=== PATIENT | male | born 1995 | race Caucasian/White ===

== ENCOUNTER 2020-01-08 04:45 | Emergency (ER) | payer SELFPAY ==
[2020-01-08] VITALS (8 sets, daily range): BP systolic 135–184; BP diastolic 83–127; PULSE 82–113; RESP 13–22; TEMP 37.3; O2SAT 98–100
--- NOTE | ~2020-01-08 | XR_ITS ---
EXAMINATION: XR chest 2V DATE: 01/08/2020 05:01 INDICATION: Midline chest pain. TECHNIQUE: Frontal and lateral views of the chest were obtained. COMPARISON: None. FINDINGS: The chest demonstrates clear lungs without pneumonia, pleural effusion, or pneumothorax. Th e heart size is normal. IMPRESSION: 1. No acute cardiopulmonary disease. Reviewed, dictated and finalized at location A.
--- NOTE | 2020-01-08 04:52 | ECG_ITS ---
Measurements Intervals [place] Rate: 103 P: 46 [place]: 117 QRS: 40 QRSD: 89 T: -26 QT: 337 QTc: 443 Interpretive Statements SINUS TACHYCARDIA WITH SHORT CA INTERVAL BORDERLINE ST-T WAVE ABNORMALITY- DIFFUSE LEADS BASELINE ARTIFACT- I, II, III, AVR, AVL, AVF, V3 ABNORMAL ECG Electronically Signed On 01-08-2020 7:28:08 CDT by Heath Berg D.O.
--- NOTE | 2020-01-08 05:01 | ED.CHESTPAIN ---
HPI - Chest Pain General Chief Complaint: Chest Pain <Mehdi Mars MD - Last Filed: 01/09/20 04:27> Stated Complaint: chest pain <Mehdi Mars MD - Last Filed: 01/09/20 04:27> Time Seen by Provider: 01/08/20 04:52 <Mehdi Mars MD - Last Filed: 01/09/20 04:27> History of Present Illness HPI narrative: 24 yo previously healthy male presents c/o chest pain. He has had the pain continuously for the past 2 days. It is substernal without radiation. Associated with intermittent SOB. Pain is worse with activity. Additionally he has noted that his his pupils are dilated and he has been shaking. symptoms became worse last night after dinner. EMS reports that he told them that he had been hearing voices. He denies alcohol or drug use. <Mehdi Mars MD - Last Filed: 01/09/20 04:27> Related Data Allergies/Adverse Reactions: Allergies Allergy/AdvReac Type Severity Reaction Status Date / Time No Known Allergies Allergy Verified 01/08/20 05:02 <Mehdi Mars MD - Last Filed: 01/09/20 04:27> Review of Systems Review of Systems: All systems reviewed & are unremarkable except as noted in HPI and below <Mehdi Mars MD - Last Filed: 01/09/20 04:27> Constitutional: Constitutional: Denies fever(s) <Mehdi Mars MD - Last Filed: 01/09/20 04:27> ENT: Reports dizziness <Mehdi Mars MD - Last Filed: 01/09/20 04:27> Cardiovascular: Cardiovascular: Reports chest pain and Reports rapid heart rate <Mehdi Mars MD - Last Filed: 01/09/20 04:27> Respiratory: Respiratory: Reports dyspnea <Mehdi Mars MD - Last Filed: 01/09/20 04:27> Gastrointestinal: Gastrointestinal: Denies abdominal pain and Denies nausea <Mehdi Mars MD - Last Filed: 01/09/20 04:27> Neurologic: Reports numbness (hands) and Denies weakness <Mehdi Mars MD - Last Filed: 01/09/20 04:27> [facility] Social History Social History: Social History (Updated 01/08/20 @ 05:06 by Mehdi Mars MD) Smoking status: Current every day smoker Gender identity (if verbalized by the patient): Male <Mehdi Mars MD - Last Filed: 01/09/20 04:27> Exam Const: General: alert <Medhi Mars MD - Last Filed: 01/09/20 04:27> Nutritional Appearance: well nourished <Mehdi Mars MD - Last Filed: 01/09/20 04:27> Orientation/consciousness: patient oriented x3 <Mehdi Mars MD - Last Filed: 01/09/20 04:27> HENMT: Head: normal to inspection <Mehdi Mars MD - Last Filed: 01/09/20 04:27> Eyes: Pupils: Equal, round and reactive pupils present <Mehdi Mars MD - Last Filed: 01/09/20 04:27> EOM: EOMs intact bilaterally <Mehdi Mars MD - Last Filed: 01/09/20 04:27> Resp: Effort & Inspection: normal respiratory effort <Mehdi Mars MD - Last Filed: 01/09/20 04:27> Auscultation: clear to auscultation bilaterally <Mehdi Mars MD - Last Filed: 01/09/20 04:27> Cardio: Rate: tachycardic <Mehdi Mars MD - Last Filed: 01/09/20 04:27> Rhythm: regular rhythm <Mehdi Mars MD - Last Filed: 01/09/20 04:27> GI: Other: Soft, NT, ND <Mehdi Mars MD - Last Filed: 01/09/20 04:27> Skin: General skin exam: normal color <Mehdi Mars MD - Last Filed: 01/09/20 04:27> Other: Fine papular rash to bilateral ankles <Mehdi Mars MD - Last Filed: 01/09/20 04:27> Neuro: General: patient oriented x3, moves all extremities and CN's II-XI intact bilaterally <Mehdi Mars MD - Last Filed: 01/09/20 04:27> Speech: normal speech <Mehdi Mars MD - Last Filed: 01/09/20 04:27> Other: tremulous <Mehdi Mars MD - Last Filed: 01/09/20 04:27> Extrem: General: normal to inspection <Mehdi Mars MD - Last Filed: 01/09/20 04:27> Psych: Affect: Anxious affect present <Mehdi Mars MD - Last Filed: 01/09/20 04:27> Course Course Emergency Cours
[2020-01-08 05:02] LABS: Basophils Absolute Auto 0.1 K/mm3 (0.0-0.1); Basophils Percent Auto 0.7 % (0.2-1.2); Eosinophils Absolute Auto 0.2 K/mm3 (0-0.3); Eosinophils Percent Auto 2.4 % (0-4.4); Hematocrit 40.9 % (42.0-52.0); Hemoglobin 14.7 g/dL (14.0-18.0); Immature Granulocyte Absolute 0.03 K/mm3 (0.00-0.031); Immature Granulocyte Percent A 0.3 % (0-0.5); Lymphocytes Absolute Auto 2.87 K/mm3 (0.9-3.2); Lymphocytes Percent Auto 29.7 % (18.3-44.2); Mean Corpuscular HGB Conc 35.9 g/dl (32-36); Mean Corpuscular Hemoglobin 31.9 pg (26-34); Mean Corpuscular Volume 88.7 fl (80-100); Mean Platelet Volume 9.8 fl (7.4-10.4); Monocytes Absolute Auto 0.8 K/mm3 (0.1-0.6); Monocytes Percent Auto 8.3 % (2.6-8.5); Neutrophils Absolute Auto 5.7 K/mm3 (1.3-6.7); Neutrophils Percent Auto 58.6 % (45.5-73.1); Platelet Count Result 237 k/mm3 (150-375); Red Blood Count 4.61 M/mm3 (4.6-6.20); Red Cell Distribution Width 12.5 % (11.5-14.5); White Blood Count 9.7 K/mm3 (4.5-10.0)
[2020-01-08] MEDS: LORAZEPAM INJ 2 MG/ML VIAL 1 MG IV PUSH (05:13)
[2020-01-08] MEDS: SODIUM CHLORIDE 0.9% IV 1,000 ML 999 ML IV CONT (05:14)
[2020-01-08 05:15] LABS: Alanine Aminotransferase 69 U/L (4-50); Albumin Level 4.5 g/dL (3.5-5.1); Alkaline Phosphatase 67 U/L (38-126); Aspartate Amino Transferase 61 U/L (17-59); Bilirubin,Total 1.6 mg/dL (0.2-1.3); Blood Urea Nitrogen 14 mg/dL (9-20); Calcium 9.3 mg/dL (8.4-10.2); Carbon Dioxide 30 mmol/L (22-30); Chloride 96 mmol/L (98-107); Estimated CRCL calculation 130 ml/min; Estimated Glomerular Filt Rate > 60; Glucose 106 mg/dL (75-110); Potassium 3.1 mmol/L (3.4-5.0); Sodium 133 mmol/L (137-145)
[2020-01-08 05:25] LABS: D Dimer < 0.22 ug/mL (<0.48)
[2020-01-08 05:42] LABS: Add Urine Microscopic? YES; Amorphous Sediment Urine Few; Appearance Urine Clear (Clear); Bacteria Urine Trace /hpf; Bilirubin Urine Negative (Negative); Blood Urine Negative (Negative); Color Urine Yellow (Yellow); Glucose Urine UA Negative (Negative); Ketones Urine Negative (Negative); Leukocyte Esterase Ur Negative LEU/UL (Negative); Nitrate Urine Negative (Negative); Protein Urine 1+ mg/dL (Negative); RBC Urine 0-2 /hpf (0-2); Specific Grav Ur 1.015 (1.001-1.035); WBC Urine 0-3 /hpf
[2020-01-08 05:53] LABS: Amphetamine Screen Urine Negative (Negative); Barbiturate Screen Urine Negative (Negative); Benzodiazepines Screen Urine Negative (Negative); Cannabinoid Screen Urine Negative (Negative); Cocaine Screen Urine Negative (Negative); Methadone Screen Urine Negative (Negative); Opiate Screen Urine Negative (Negative); Phencyclidine Screen Urine Negative (Negative)
[2020-01-08] MEDS: POTASSIUM CHLORIDE 20 MEQ TABLET 40 MEQ PO (08:00)
[2020-01-08 08:15] LABS: Troponin I < 0.012 ng/mL (0.000-0.034)
== END 2020-01-08 08:25 | disposition home or self-care (01) ==
PROVIDERS: Emergency Medicine; Emergency Provider Emergency Medicine
DX: R07.89 Other chest pain (principal); F17.200 Nicotine dependence, unspecified, uncomplicated; R00.0 Tachycardia, unspecified; R94.31 Abnormal electrocardiogram [ECG] [EKG]
CPT/HCPCS: 36415; 71046; 80053; 80307; 81001; 84443; 84484; 85025; 85380; 93005; 96361; 96374; 99284; A9270; J2060; J7030

== ENCOUNTER 2020-01-09 13:28 | Emergency (ER) | payer SELFPAY ==
[2020-01-09] VITALS (16 sets, daily range): BP systolic 149–174; BP diastolic 85–126; PULSE 79–132; RESP 16–25; TEMP 37.7; O2SAT 98–100
--- NOTE | ~2020-01-09 | CT_ITS ---
EXAMINATION: CT brain wo con DATE: 01/09/2020 14:24 INDICATION: Altered mental status TECHNIQUE: Computed tomography (CT) of the head was performed without intravenous contrast. Sagittal and coronal reconstructions were performed. The mA was adjusted according to patient size. Iterative reconstruction technique was employed. The dose-length product was 605.33 mGy-cm. COMPARISON: None FINDINGS: No acute intracranial hemorrhage, acute infarction or abnormal extra axial fluid collection. Ventricl es are normal and symmetric. No mass/mass effect. The orbits, paranasal sinuses and mastoid air cells are normal. IMPRESSION: 1. Normal head CT. Reviewed, dictated and finalized at location A. IMPRESSION: 1. Normal head CT.
--- NOTE | 2020-01-09 13:35 | ECG_ITS ---
Measurements Intervals [place] Rate: 114 P: 64 [place]: 129 QRS: 57 QRSD: 88 T: -7 QT: 276 QTc: 382 Interpretive Statements SINUS TACHYCARDIA INCOMPLETE RIGHT BUNDLE BRANCH BLOCK NONSPECIFIC ST & T-WAVE ABNORMALITY- ANTEROLAT/INF LEADS ABNORMAL ECG Electronically Signed On 01-09-2020 14:05:46 CDT by Heath Berg D.O.
[2020-01-09 13:48] LABS: Basophils Absolute Auto 0.1 K/mm3 (0.0-0.1); Basophils Percent Auto 0.9 % (0.2-1.2); Eosinophils Absolute Auto 0.4 K/mm3 (0-0.3); Eosinophils Percent Auto 3.9 % (0-4.4); Hematocrit 38.9 % (42.0-52.0); Hemoglobin 13.9 g/dL (14.0-18.0); Immature Granulocyte Absolute 0.02 K/mm3 (0.00-0.031); Immature Granulocyte Percent A 0.2 % (0-0.5); Lymphocytes Absolute Auto 3.51 K/mm3 (0.9-3.2); Lymphocytes Percent Auto 32.9 % (18.3-44.2); Mean Corpuscular HGB Conc 35.7 g/dl (32-36); Mean Corpuscular Hemoglobin 32.6 pg (26-34); Mean Corpuscular Volume 91.1 fl (80-100); Mean Platelet Volume 10.3 fl (7.4-10.4); Monocytes Absolute Auto 1.1 K/mm3 (0.1-0.6); Monocytes Percent Auto 10.1 % (2.6-8.5); Neutrophils Absolute Auto 5.6 K/mm3 (1.3-6.7); Platelet Count Result 215 k/mm3 (150-375); Red Blood Count 4.27 M/mm3 (4.6-6.20); Red Cell Distribution Width 13.1 % (11.5-14.5); White Blood Count 10.7 K/mm3 (4.5-10.0)
[2020-01-09] MEDS: SODIUM CHLORIDE 0.9% IV 1,000 ML 999 ML IV CONT (13:51)
[2020-01-09] MEDS: LORAZEPAM INJ 2 MG/ML VIAL 1 MG IV PUSH (13:53)
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
[2020-01-09 14:00] LABS: Alanine Aminotransferase 49 U/L (4-50); Albumin Level 4.5 g/dL (3.5-5.1); Alkaline Phosphatase 54 U/L (38-126); Aspartate Amino Transferase 55 U/L (17-59); Bilirubin,Total 0.6 mg/dL (0.2-1.3); Blood Urea Nitrogen 6 mg/dL (9-20); Carbon Dioxide 23 mmol/L (22-30); Chloride 102 mmol/L (98-107); Estimated CRCL calculation 151 ml/min; Estimated Glomerular Filt Rate > 60; Ethanol < 10 mg/dL (<10); Glucose 112 mg/dL (75-110); Potassium 3.1 mmol/L (3.4-5.0); Sodium 137 mmol/L (137-145)
[2020-01-09] MEDS: POTASSIUM CHLORIDE 20 MEQ TABLET 40 MEQ PO (14:37)
[2020-01-09 15:06] LABS: Add Urine Microscopic? NO; Appearance Urine Clear (Clear); Bilirubin Urine Negative (Negative); Blood Urine Negative (Negative); Color Urine Straw (Yellow); Glucose Urine UA Negative (Negative); Ketones Urine Negative (Negative); Leukocyte Esterase Ur Negative LEU/UL (Negative); Mucus Urine Rare /lpf; Nitrate Urine Negative (Negative); Protein Urine Negative (Negative); Specific Grav Ur 1.008 (1.001-1.035); Squamous Epithelial Cell Urine Rare /hpf (Few); Urobilinogen Urine Negative mg/dL (<2.0); WBC Urine 0-3 /hpf
[2020-01-09 15:18] LABS: Amphetamine Screen Urine Negative (Negative); Barbiturate Screen Urine Negative (Negative); Benzodiazepines Screen Urine Negative (Negative); Cannabinoid Screen Urine Negative (Negative); Cocaine Screen Urine Negative (Negative); Methadone Screen Urine Negative (Negative); Opiate Screen Urine Negative (Negative); Phencyclidine Screen Urine Negative (Negative)
--- NOTE | 2020-01-09 15:33 | PC.NURSE ---
Note multiple times when checking on patient that he appears to be having a conversation with someone. Pt denies auditory or visual hallucinations. Denies suicidal or homicidal ideations. Dr. Toure made aware.
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
--- NOTE | 2020-01-09 16:30 | PC.NURSE ---
Pt again attempting to walk out again. Dr. Toure at bedside.
--- NOTE | 2020-01-09 16:35 | PC.NURSE ---
Dr. Toure speaking with patient's mother at [phone].
--- NOTE | 2020-01-09 16:37 | PC.NURSE ---
Pt again noted per sitter to be going through cabinets and drawers, pacing around the room. Explained to patient that will need to place him into ED Rm 15 if he is unable to control his behavior. Pt states no man, I'm not going in there . Sitter remains at bedside.
--- NOTE | 2020-01-09 16:43 | PC.NURSE ---
Behavioral health here to speak with patient.
--- NOTE | 2020-01-09 16:57 | PC.NURSE ---
Pt given green scrubs and security assisting with getting patient to ED RM 15.
--- NOTE | 2020-01-09 17:03 | PC.NURSE ---
Pt's belongings removed and secured in locked cabinet at nurses station.
--- NOTE | 2020-01-09 17:42 | PC.NURSE ---
Report to Ana María at [facility].
--- NOTE | 2020-01-09 17:49 | PC.NURSE ---
1730 RECEIVED CALL FROM BETSY @[facility],ASKED TO FAX FACE SHEET TO [facility]. SHE ALSO STATED SHE HAD SENT INFO TO MAKI GUNTER.
--- NOTE | 2020-01-09 17:52 | PC.NURSE ---
Report to Traci at [facility].
--- NOTE | 2020-01-09 18:08 | PC.NURSE ---
Pt's chart faxed to [facility] and [facility] for their review. Alem remains at bedside. Pt cooperative.
--- NOTE | 2020-01-09 19:19 | PC.NURSE ---
Report to DALE Whyte, to continue care.
--- NOTE | 2020-01-09 19:26 | PC.NURSE ---
Crisis intervention assessment and inpatient certificate refaxed to [place] per request of DALE Gotti.
[2020-01-09] MEDS: WATER, STERILE FOR INJECTION 10 ML VIAL XX (19:43)
[2020-01-09] MEDS: OLANZapine 10 MG INJ VIAL IM (19:43)
--- NOTE | 2020-01-09 19:43 | PC.NURSE ---
Patient noted to be screaming about killing people and making the hospital collapse killing everyone inside. ED lead instructor/flight attendant and physician aware of situation, medications ordered. Patient given medication, while being verbally abusive to staff. Reportedly calling this RN you fucking bitch, I'll show you. Patient on bed in room 15, security and sitter at bedside.
--- NOTE | 2020-01-09 22:12 | PC.NURSE ---
[facility] fax for Covid screening returned per request from Amanda.
--- NOTE | 2020-01-09 22:31 | PC.NURSE ---
2227- per Tete with Crisis- fax ED record to [facility]. Fax- [phone], [facility] number - [phone].
--- NOTE | 2020-01-09 22:38 | PC.NURSE ---
Patient's chart faxed to [facility] per request of Amanda.
--- NOTE | 2020-01-10 01:04 | PC.NURSE ---
Amanda duran [facility] called, Dr Ordonez accepts patient. States the unit will call when his bed is ready.
--- NOTE | 2020-01-10 01:33 | PC.NURSE ---
spoke w/ [facility]. informed them pt is accepted at [facility]
[2020-01-10 02:10] VITALS: BP 144/94; PULSE 60; RESP 15; TEMP 36.1; O2SAT 100
--- NOTE | 2020-01-10 02:18 | PC.NURSE ---
Called [facility] to transport to [facility]...ETA [id number]
== END 2020-01-10 04:17 ==
PROVIDERS: Emergency Medicine; Emergency Provider Emergency Medicine
DX: R45.6 Violent behavior (principal); F17.200 Nicotine dependence, unspecified, uncomplicated; R00.0 Tachycardia, unspecified; I45.10 Unspecified right bundle-branch block; R94.31 Abnormal electrocardiogram [ECG] [EKG]
CPT/HCPCS: 36415; 70450; 80053; 80307; 81003; 84443; 85025; 93005; 96361; 96372; 96374; 99285; A4565; A9270; J2060; J7030

== ENCOUNTER 2020-07-13 15:47 | Emergency (ER) | payer SELFPAY ==
[2020-07-13] VITALS (7 sets, daily range): BP systolic 138–182; BP diastolic 92–103; PULSE 75–103; RESP 8–18; TEMP 36.6; O2SAT 84–100
--- NOTE | ~2020-07-13 | XR_ITS ---
EXAMINATION: XR chest 2V DATE: 07/13/2020 17:17 INDICATION: Bilateral leg swelling. TECHNIQUE: Frontal and lateral views of the chest were obtained. COMPARISON: Chest 2 views 01/08/20 FINDINGS: The chest demonstrates clear lungs without pneumonia, pleural effusion, or pneumothorax. Th e heart size is normal. IMPRESSION: 1. No acute cardiopulmonary disease. Reviewed, dictated and finalized at location A. CH MARKETING ANALYST
--- NOTE | ~2020-07-13 | US_ITS ---
EXAMINATION: US venous doppler [facility] DATE: 07/13/2020 18:05 INDICATION: Lower limb edema. TECHNIQUE: Grayscale ultrasound images without and with compression and Doppler ultrasound images of the bilateral lower extremity veins were obtained. COMPARISON: None. FINDINGS: The visualized portions of right common femoral vein, profunda (deep) femoral vein, femoral vein, pop liteal vein, peroneal veins, posterior tibial veins, and greater saphenous vein outflow are patent. The visualized portions of left common femoral vein, profunda femoral vein, femoral vein, popliteal v ein, peroneal veins, posterior tibial veins, and greater saphenous vein outflow are patent. IMPRESSION: 1. No deep venous thrombosis. Reviewed, dictated and finalized at location A. AID
--- NOTE | ~2020-07-13 | XR_ITS ---
EXAMINATION: XR hand LT min 3V DATE: 07/13/2020 18:10 INDICATION: Left hand pain and swelling. Injury. TECHNIQUE: 3 views of left hand were obtained. COMPARISON: None. FINDINGS: There is a transverse fracture of diaphysis of fourth metacarpal. The distal fracture fragm ent demonstrates 22 degrees palmar angulation, one cortical width ulnar displacement, and 12 degrees radial angulation. Joint spaces are normal. IMPRESSION: 1. Transverse fracture of diaphysis of fourth metacarpal. Reviewed, dictated and finalized at location A. ASTRUCTURE DEVELOPER
[2020-07-13 16:09] LABS: Basophils Absolute Auto 0.1 K/mm3 (0.0-0.1); Basophils Percent Auto 1.1 % (0.2-1.2); Eosinophils Absolute Auto 0.6 K/mm3 (0-0.3); Eosinophils Percent Auto 7.8 % (0-4.4); Hematocrit 37.2 % (42.0-52.0); Hemoglobin 12.4 g/dL (14.0-18.0); Immature Granulocyte Absolute 0.01 K/mm3 (0.00-0.031); Immature Granulocyte Percent A 0.1 % (0-0.5); Lymphocytes Absolute Auto 1.76 K/mm3 (0.9-3.2); Lymphocytes Percent Auto 23.3 % (18.3-44.2); Mean Corpuscular HGB Conc 33.3 g/dl (32-36); Mean Corpuscular Volume 96.1 fl (80-100); Mean Platelet Volume 9.1 fl (7.4-10.4); Monocytes Percent Auto 12.7 % (2.6-8.5); Neutrophils Absolute Auto 4.1 K/mm3 (1.3-6.7); Platelet Count Result 295 k/mm3 (150-375); Red Blood Count 3.87 M/mm3 (4.6-6.20); Red Cell Distribution Width 14.1 % (11.5-14.5); White Blood Count 7.5 K/mm3 (4.5-10.0)
[2020-07-13 16:19] LABS: INR 0.9; Prothrombin Time 13.2 Seconds (11.1-14.7)
[2020-07-13 16:25] LABS: Alanine Aminotransferase 61 U/L (4-50); Albumin Level 3.8 g/dL (3.5-5.1); Alkaline Phosphatase 91 U/L (38-126); Anion Gap 6 mmol/L (8-16); Aspartate Amino Transferase 78 U/L (17-59); Bilirubin,Total 0.3 mg/dL (0.2-1.3); Blood Urea Nitrogen 4 mg/dL (9-20); Calcium 9.2 mg/dL (8.4-10.2); Carbon Dioxide 33 mmol/L (22-30); Chloride 99 mmol/L (98-107); Estimated CRCL calculation 150 ml/min; Estimated Glomerular Filt Rate > 60; Glucose 133 mg/dL (75-110); Potassium 3.6 mmol/L (3.4-5.0); Sodium 138 mmol/L (137-145)
[2020-07-13 16:36] LABS: NT Pro B Type Natriuretic Pept 426 PG/ML (5-100)
--- NOTE | 2020-07-13 17:13 | PC.NURSE ---
PT UNABLE TO PROVIDE UA AT THIS TIME, REFUSING CATH.
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
--- NOTE | 2020-07-13 17:42 | PC.NURSE ---
PT UNABLE TO GIVE UA, REFUSING CATH, TAKEN TO ULTRASOUND AT THIS ITME.
--- NOTE | 2020-07-13 17:48 | PC.NURSE ---
unable to draw labs due to pt taken to us
[2020-07-13 18:43] LABS: Prothrombin Time 13.4 Seconds (11.1-14.7)
[2020-07-13 18:44] LABS: Lactic Acid Reflex 0.8 mmol/L (0.7-2.1); Partial Thromboplastin Time 33.6 SECONDS (22.3-36.8)
--- NOTE | 2020-07-13 19:03 | PC.NURSE ---
URINE ORDER CANCELLED PER HANNAH JACOB.
[2020-07-13 19:16] LABS: CRP 2.3 mg/dL (<1.0)
[2020-07-13] MEDS: FUROSEMIDE 20 MG TABLET PO (20:14)
== END 2020-07-13 20:21 | disposition home or self-care (01) ==
PROVIDERS: General Practice; Physician Assistant; Emergency Provider Emergency Medicine
DX: R60.0 Localized edema (principal); S62.325A Displaced fracture of shaft of fourth metacarpal bone, left hand, initial encounter for closed fracture; F17.210 Nicotine dependence, cigarettes, uncomplicated; W23.0XXA Caught, crushed, jammed, or pinched between moving objects, initial encounter
CPT/HCPCS: 29125; 36415; 71046; 73130; 80053; 83605; 83880; 85025; 85610; 85730; 86140; 93970; 99284; A9270

== ENCOUNTER 2023-07-27 15:04 | Emergency (ER) | payer MEDICAID, SELFPAY ==
[2023-07-27] VITALS (12 sets, daily range): BP systolic 133–155; BP diastolic 87–99; PULSE 60–92; RESP 12–21; TEMP 36.3; O2SAT 93–99
--- NOTE | ~2023-07-27 | CT_ITS ---
EXAMINATION: CT abdomen pelvis wo con DATE: 07/27/2023 18:00 INDICATION: Right flank pain and hematuria TECHNIQUE: Computed tomography (CT) of the abdomen and pelvis was performed without intravenous contr ast. Automated exposure control and iterative reconstruction technique were employed. The dose-length product was 516.66 mGy-cm. COMPARISON: None FINDINGS: Lung bases are clear. Heart size is normal. No pericardial or pleural effusion. Liver, gallbladder, s pleen, pancreas and bilateral adrenal glands are normal. 1-2 mm stone at a lower pole calyx of the le ft kidney with no left-sided ureteral stones or hydronephrosis. 11 x 6 mm obstructing stone in the di stal right ureter approximately 1 cm from the ureterovesicular junction. There is moderate right hydr oureteronephrosis with some periureteral stranding. Bladder is normal. Bowels including the appendix are normal. No free intraperitoneal gas or fluid. No pathologically enlarged abdominal or pelvic lymp hadenopathy. Mild scattered degenerative skeletal changes in the spine and pelvis. IMPRESSION: 1. Bilateral nephrolithiasis with obstructing 11 x 6 mm distal right ureteral stone with moderate rig ht hydronephrosis. Reviewed, dictated and finalized at location A. EL COUNSELOR IMPRESSION: 1. Bilateral nephrolithiasis with obstructing 11 x 6 mm distal right ureteral s tone with moderate right hydronephrosis.
--- NOTE | ~2023-07-27 | XR_ITS ---
EXAMINATION: XR abdomen/kub 1V DATE: 07/27/2023 18:04 INDICATION: Right-sided flank pain TECHNIQUE: A supine view of the abdomen on 2 radiographs was obtained. COMPARISON: CT dated 07/27/2023 FINDINGS: The ovoid 11 x 6 mm distal right ureteral stone is clearly visible on the plain radiographs. Addition ally there are several phleboliths as well as prostatic calcifications in the pelvis. Normal bowel ga s pattern. Lung bases are clear. Heart size is normal. Bilateral decreased femoral head/neck offset w hich could predispose towards cam-type femoral acetabular impingement. IMPRESSION: 1. 11 x 6 mm distal right ureteral stone. Reviewed, dictated and finalized at location A. DRIER
[2023-07-27 15:24] LABS: Basophils Absolute Auto 0.1 K/mm3 (0.0-0.1); Basophils Percent Auto 0.7 % (0.2-1.2); Eosinophils Percent Auto 0.3 % (0-4.4); Hematocrit 46.1 % (42.0-52.0); Hemoglobin 15.1 g/dL (14.0-18.0); Immature Granulocyte Absolute 0.02 K/mm3 (0.00-0.031); Immature Granulocyte Percent A 0.2 % (0-0.5); Lymphocytes Absolute Auto 1.26 K/mm3 (0.9-3.2); Lymphocytes Percent Auto 11.1 % (18.3-44.2); Mean Corpuscular HGB Conc 32.8 g/dl (32-36); Mean Corpuscular Hemoglobin 30.7 pg (26-34); Mean Corpuscular Volume 93.7 fl (80-100); Mean Platelet Volume 8.9 fl (7.4-10.4); Monocytes Absolute Auto 0.8 K/mm3 (0.1-0.6); Monocytes Percent Auto 7.1 % (2.6-8.5); Neutrophils Absolute Auto 9.2 K/mm3 (1.3-6.7); Neutrophils Percent Auto 80.6 % (45.5-73.1); Platelet Count Result 260 k/mm3 (150-375); Red Blood Count 4.92 M/mm3 (4.6-6.20); White Blood Count 11.4 K/mm3 (4.5-10.0)
[2023-07-27 15:32] LABS: Appearance Urine Turbid (Clear); Bacteria Urine None Seen /hpf; Bilirubin Urine 1+ (Negative); Blood Urine 3+ (Negative); Color Urine Dark Yellow (Yellow); Glucose Urine UA Negative (Negative); Ketones Urine Trace mg/dL (Negative); Leukocyte Esterase Ur Trace LEU/UL (Negative); Need Manual Microscopic Reviewed; Nitrate Urine Negative (Negative); Protein Urine 2+ mg/dL (Negative); RBC Urine >100 /hpf (0-2); Specific Grav Ur 1.032 (1.001-1.035); Squamous Epithelial Cell Urine Occasional /hpf (Few); pH Urine 5.5 (5.0-9.0)
[2023-07-27 15:34] LABS: Add Urine Microscopic? YES
[2023-07-27 15:36] LABS: Alanine Aminotransferase 17 U/L (6-50); Albumin Level 4.7 g/dL (3.5-5.1); Alkaline Phosphatase 60 U/L (38-126); Anion Gap 13 mmol/L (8-16); Aspartate Amino Transferase 24 U/L (17-59); Bilirubin,Total 0.5 mg/dL (0.2-1.3); Blood Urea Nitrogen 13 mg/dL (9-20); Calcium 9.5 mg/dL (8.4-10.2); Carbon Dioxide 24 mmol/L (22-30); Chloride 103 mmol/L (98-107); Estimated CRCL calculation 79 ml/min; Estimated Glomerular Filt Rate > 60; Glucose 139 mg/dL (65-110); Potassium 4.1 mmol/L (3.4-5.0); Sodium 140 mmol/L (137-145)
--- NOTE | 2023-07-27 17:54 | PC.NURSE ---
pt to CT via stretcher at this time
--- NOTE | 2023-07-27 18:17 | ED.MALEGU ---
HPI - Male Genitourinary General Chief complaint: Urogenital-Male Stated complaint: blood in urine Time Seen by Provider: 07/27/23 17:52 Source: patient and RN notes reviewed Mode of arrival: ambulatory Limitations: no limitations History of Present Illness HPI Narrative: This is a 28 year old male who presents for evaluation of right flank pain . He states he developed pain this morning. HE also had associated nausea and vomiting. He went to for evaluation and he was sent to ER to rule out kidney stone. He also reports they tested him for COVID And he was positive. He denies any symptoms of covid. He was given toradol 30 mg IM and zofran 4 mg prior to discharge. He states his pain has resolved and he denies nausea and vomiting. Related Data Allergies Allergy/AdvReac Type Severity Reaction Status Date / Time No Known Allergies Allergy Verified 07/13/20 15:51 Review of Systems Constitutional: Constitutional: Denies weakness Cardiovascular: Cardiovascular: Denies syncope, Denies rapid heart rate, Denies irregular heart rhythm, Denies leg edema and Denies dyspnea Respiratory: Respiratory: Denies chest congestion, Denies hemoptysis, Denies excessive phlegm production and Denies dyspnea Gastrointestinal: Gastrointestinal: Reports abdominal pain, Denies hematochezia, Denies diarrhea, Reports nausea and Reports vomiting Genitourinary: Genitourinary: Denies hematuria, Denies dysuria, Denies penile discharge and Denies testicular pain Musculoskeletal: Musculoskeletal: Denies joint swelling, Denies loss of height and Denies muscle weakness Neurologic: Denies syncope, Denies focal weakness and Denies weakness PMFSH Past Medical History Medical History (Updated 07/27/23 @ 18:48 by Charisma Saavedra MD) History of alcohol abuse History of schizophrenia Surgical History Surgical History (Updated 07/27/23 @ 18:18 by Charisma Saavedra MD) No pertinent past surgical history Social History Social History (Updated 07/27/23 @ 18:18 by Charisma Saavedra MD) Smoking status: Current every day smoker Tobacco type: e-cigarettes/vaping Gender identity (if verbalized by the patient): Male Exam Const: General: no acute distress and alert Nutritional Appearance: well nourished HENMT: Head: normal to inspection Eyes: EOM: EOMs intact bilaterally Chest: Chest palpation & inspection: normal inspection of the chest Resp: Effort & Inspection: normal respiratory effort Auscultation: clear to auscultation bilaterally Cardio: Rate: regular rate Rhythm: regular rhythm Heart sounds: no murmurs GI: GI Palp: Yes Soft to palpation, No Tenderness to palpation present (GI), No Guarding due to palpation present (GI) and No Rigid due to palpation : General: Yes no CVA tenderness Skin: General skin exam: normal color Rashes: no rashes Wounds: no wounds Neuro: General: patient oriented x3 and moves all extremities Cranial nerves: Yes CN's II-XII intact bilaterally Psych: Mental Status: mental status grossly normal Affect: normal affect Attitude: cooperative Course Reevaluation(s) Reevaluation #1: I have discussed with patient CT shows large stone. He is comfortable with discharge with pain medication. I discussed return precautions such as fever, intractable pain and vomiting. He is pain free currently. Date: 07/27/23 Time: 18:46 Consultations Consultation #1: I spoke with Dr. Medina who will take down patient's info. If patient feels comfortable he can be discharged for outptient intervention. HE is okay with patient being discharged with norco and toradol for pain. Date: 07/27/23 Time: 18:45 Vital Signs Vital signs: Vital Signs Temperature 97.3 F L 07/27/23 15:14 Pulse Rate 92 07/27/23 15:14 Respiratory Rate 18 07/27/23 15:14 Blood Pressure 151/99 H 07/27/23 15:14 Pulse Oximetry 96 07/27/23 15:14 Temperature 97.3 F L 07/27/23 15:14 Pulse Rate 72 07/27/23 18:56 Respiratory
[2023-07-27] MEDS: SODIUM CHLORIDE 0.9% IV 500 ML 999 ML IV CONT (18:54)
[2023-07-27] MEDS: TAMSULOSIN HCL 0.4 MG CAPSULE PO (18:55)
== END 2023-07-27 19:43 | disposition home or self-care (01) ==
PROVIDERS: Emergency Medicine; Emergency Provider General Practice
DX: N20.1 Calculus of ureter (principal); F17.219 Nicotine dependence, cigarettes, with unspecified nicotine-induced disorders
CPT/HCPCS: 36415; 74018; 74176; 80053; 81001; 85025; 87086; 96360; 99284; A9270; J7040

== ENCOUNTER 2023-09-01 13:51 | Emergency (ER) | payer BC, SELFPAY ==
[2023-09-01] VITALS (24 sets, daily range): BP systolic 127–153; BP diastolic 80–120; PULSE 84–126; RESP 15–27; TEMP 36.4; O2SAT 93–98
--- NOTE | ~2023-09-01 | XR_ITS ---
EXAMINATION: XR chest 1V portable 09/01/2023 18:56 INDICATION: Intoxication PROCEDURE: 2 view chest COMPARISON: 07/13/2020 FINDINGS: The lungs are clear. The cardiomediastinal silhouette is within normal limits. There are no pleural effusions. There is no pneumothorax suspected. IMPRESSION: 1: NO ACUTE CARDIOPULMONARY DISEASE. Reviewed, dictated and finalized at location A. ILE GRINDER TECHNICIAN
--- NOTE | 2023-09-01 14:11 | PC.NURSE ---
Pt belongings taken and locked up in the ED. 2 small bottles of alcohol wasted with Vy HUNTER
--- NOTE | 2023-09-01 14:13 | ECG_ITS ---
Measurements Intervals Mayer Rate: 98 P: -79 ID: [id number] QRS: 34 QRSD: 99 T: 89 QT: 319 QTc: 409 Interpretive Statements JUNCTIONAL RHYTHM INFERIOR MYOCARDIAL INFARCTION , OF INDETERMINATE AGE [40+ ms Q WAVE AND/OR ST/T ABNORMALITY IN II/aVF] COMPARED TO ECG 01/09/2020 13:58:02 JUNCTIONAL RHYTHM NOW PRESENT MYOCARDIAL INFARCT FINDING NOW PRESENT Electronically Signed On 09-01-2023 19:54:13 SHEET MILL SUPERVISOR by Veronika Andre M.D.
[2023-09-01 14:46] LABS: Basophils Absolute Auto 0.1 K/mm3 (0.0-0.1); Eosinophils Absolute Auto 0.1 K/mm3 (0-0.3); Eosinophils Percent Auto 1.7 % (0-4.4); Hematocrit 47.6 % (42.0-52.0); Hemoglobin 16.4 g/dL (14.0-18.0); Immature Granulocyte Absolute 0.02 K/mm3 (0.00-0.031); Immature Granulocyte Percent A 0.2 % (0-0.5); Lymphocytes Absolute Auto 3.71 K/mm3 (0.9-3.2); Lymphocytes Percent Auto 45.1 % (18.3-44.2); Mean Corpuscular HGB Conc 34.5 g/dl (32-36); Mean Corpuscular Hemoglobin 31.2 pg (26-34); Mean Corpuscular Volume 90.7 fl (80-100); Mean Platelet Volume 9.1 fl (7.4-10.4); Monocytes Absolute Auto 0.6 K/mm3 (0.1-0.6); Monocytes Percent Auto 6.8 % (2.6-8.5); Neutrophils Absolute Auto 3.7 K/mm3 (1.3-6.7); Neutrophils Percent Auto 45.2 % (45.5-73.1); Platelet Count Result 340 k/mm3 (150-375); Red Blood Count 5.25 M/mm3 (4.6-6.20); Red Cell Distribution Width 13.1 % (11.5-14.5); White Blood Count 8.2 K/mm3 (4.5-10.0)
[2023-09-01 15:11] LABS: Alanine Aminotransferase 26 U/L (6-50); Albumin Level 4.7 g/dL (3.5-5.1); Alkaline Phosphatase 72 U/L (38-126); Anion Gap 15 mmol/L (8-16); Aspartate Amino Transferase 34 U/L (17-59); Bilirubin,Total 0.8 mg/dL (0.2-1.3); Blood Urea Nitrogen 17 mg/dL (9-20); Calcium 8.8 mg/dL (8.4-10.2); Carbon Dioxide 24 mmol/L (22-30); Chloride 106 mmol/L (98-107); Estimated CRCL calculation 105 ml/min; Estimated Glomerular Filt Rate > 60; Glucose 114 mg/dL (65-110); Potassium 3.7 mmol/L (3.4-5.0); Sodium 145 mmol/L (137-145)
[2023-09-01 15:35] LABS: Ethanol 404 mg/dL (<10)
--- NOTE | 2023-09-01 15:57 | PC.NURSE ---
This RN went into pt room and discovered he had ripped out his IV. When this RN asked the pt why he removed his IV he stated because and started laughing. This RN educated this pt on why the IV was needed and a new one was placed. marble coper notified
[2023-09-01] MEDS: ONDANSETRON INJ 4 MG/2 ML VIAL IV PUSH (18:06)
[2023-09-01] MEDS: SODIUM CHLORIDE 0.9% IV 1,000 ML 999 ML IV CONT ×2 (18:06→19:04)
--- NOTE | 2023-09-01 18:39 | ED.ALCOHOL ---
HPI - Alcohol General Chief Complaint: Alcohol Stated Complaint: OD Time Seen by Provider: 09/01/23 17:18 Source: patient and family Mode of arrival: wheelchair Limitations: intoxication History of Present Illness HPI narrative: Patient presents to the emergency department for alcohol intoxication. Reportedly patient drank a lot of 99 bananas today. Family were concerned and dropped him off for evaluation as he started to become unresponsive. Upon my evaluation patient is alert and oriented, although was unsure how he got here. Had not complaints. Related Data Allergies Allergy/AdvReac Type Severity Reaction Status Date / Time No Known Allergies Allergy Verified 09/01/23 14:03 Review of Systems Review of Systems: CONSTITUTIONAL: Denies fever CARDIOVASCULAR: Denies chest pain RESPIRATORY: Denies dyspnea. GASTROINTESTINAL: Denies abdominal pain NEUROLOGIC: Denies numbness, or weakness. All systems reviewed & are unremarkable except as noted in HPI and below PMFSH Past Medical History Medical History (Updated 09/01/23 @ 22:41 by Rena Werner PA-C) History of alcohol abuse History of schizophrenia Surgical History Surgical History (Updated 07/27/23 @ 18:18 by Charisma Saavedra MD) No pertinent past surgical history Social History Social History (Updated 07/27/23 @ 18:18 by Charisma Saavedra MD) Smoking status: Current every day smoker Tobacco type: e-cigarettes/vaping Gender identity (if verbalized by the patient): Male Exam Narrative: GENERAL: Well-appearing, well-nourished, and in no acute distress. HEAD: Normocephalic, atraumatic. EYES: PERRLA and EOMI. ENT: Nares clear, no rhinorrhea or epistaxis. Mucous membranes moist. Oropharynx without tonsillar hypertrophy exudate or other lesions. Bilateral TMs pearly schaffer non-bulging NECK: Supple. No adenopathy or masses. CHEST: Clear to auscultation. No respiratory distress. No wheezes rales or rhonchi HEART: Regular rate and rhythm. No murmur heard. Normal peripheral pulses. ABDOMEN: Soft, nontender, nondistended, normal active bowel sounds. EXTREMITIES: Normal range of motion. No edema. SKIN: Warm, dry, no rash. NEURO: No focal deficits. Alert and oriented x3. Cranial nerves 2-12 grossly intact. Normal gait PSYCH: Normal mood and affect Course Course Emergency Course: Patient re-evaluated. Is alert and oriented. Ambulating with a steady gait. Clinically sober. His family member is going to give him a ride Vital Signs Vital signs: Vital Signs Temperature 97.6 F 09/01/23 13:53 Pulse Rate 108 H 09/01/23 13:53 Respiratory Rate 15 09/01/23 13:53 Blood Pressure 152/105 H 09/01/23 13:53 Pulse Oximetry 97 09/01/23 13:53 Oxygen Delivery Room Air 09/01/23 13:53 Temperature 97.6 F 09/01/23 13:53 Pulse Rate 92 09/01/23 21:03 Respiratory Rate 24 H 09/01/23 19:39 Blood Pressure 127/83 09/01/23 21:03 Pulse Oximetry 97 09/01/23 21:03 Oxygen Delivery Room Air 09/01/23 13:53 MDM - Alcohol MDM Narrative Medical decision making narrative: Patient presents to the emergency department for alcohol intoxication. Reportedly patient had drink so much that he started become unresponsive today. Upon my evaluation patient is alert oriented and did not have any complaints. CBC and metabolic panel without concerning findings. Urine drug screen is negative. Alcohol level initially elevated at 404. Chest x-ray without acute cardiopulmonary abnormality. Patient hydrated with IV fluids and re-evaluated. Is alert and oriented. Ambulating with a steady gait. Clinically sober. His family member is going to give him a ride home Differential Diagnosis Differential diagnosis: Likely alcohol intoxication and other (alcohol abuse, drug abuse) Lab Data Attestation: I reviewed the patient's lab results. 09/01/23 14:39 09/01/23 14:39 Labs: Lab Results 09/01/23 09/01/23 Range/Units
--- NOTE | 2023-09-01 19:11 | PC.NURSE ---
Report given to Charleen HUNTER, all questions answered
[2023-09-01 19:14] LABS: Appearance Urine Cloudy (Clear); Bacteria Urine None Seen /hpf; Bilirubin Urine Negative (Negative); Blood Urine Negative (Negative); Color Urine Yellow (Yellow); Glucose Urine UA Negative (Negative); Ketones Urine Negative (Negative); Leukocyte Esterase Ur Negative LEU/UL (Negative); Nitrate Urine Negative (Negative); Non Pathogenic Casts 0-2; Protein Urine 1+ mg/dL (Negative); RBC Urine 0-2 /hpf (0-2); Specific Grav Ur 1.023 (1.001-1.035); Squamous Epithelial Cell Urine None seen /hpf (Few); Urobilinogen Urine 0.2 mg/dL (<2.0); WBC Urine 0-5 /hpf; pH Urine 5.5 (5.0-9.0)
[2023-09-01 19:29] LABS: Amphetamine Screen Urine Negative (Negative); Barbiturate Screen Urine Negative (Negative); Benzodiazepines Screen Urine Negative (Negative); Cannabinoid Screen Urine Negative (Negative); Cocaine Screen Urine Negative (Negative); Methadone Screen Urine Negative (Negative); Opiate Screen Urine Negative (Negative); Phencyclidine Screen Urine Negative (Negative)
[2023-09-01 19:46] LABS: Add Urine Microscopic? YES
--- NOTE | 2023-09-01 22:42 | PC.NURSE ---
Spoke with pt sister, LIOR, about pt being discharged. Lior stated she would be here in about 20 minutes. Pt awaiting for her arrival.
== END 2023-09-01 23:43 | disposition home or self-care (01) ==
PROVIDERS: Emergency Medicine; Emergency Provider Physician Assistant
DX: F10.920 Alcohol use, unspecified with intoxication, uncomplicated (principal); Y90.8 Blood alcohol level of 240 mg/100 ml or more
CPT/HCPCS: 36415; 71045; 80053; 80307; 81001; 85025; 93005; 96361; 96374; 99284; J2405; J7030

== ENCOUNTER 2024-09-02 22:12 | Emergency (ER) | payer BC, SELFPAY ==
--- NOTE | 2024-09-02 22:26 | ECG_ITS ---
Test Date: 2024-09-02 22:22:46 Measurements Intervals [place] Rate: 133 P: 65 NH: 126 QRS: 21 QRSD: 82 T: -37 QT: 332 QTc: 494 Interpretive Statements SINUS TACHYCARDIA MINIMAL VOLTAGE CRITERIA FOR LVH, CONSIDER NORMAL VARIANT [MEETS CRITERIA IN ONE OF: R(aVL), S(V1), R(V5), R(V5/V6)+S(V1)] nonspecific t wave abnormalities No previous ECG available for comparison Electronically Signed On 09-03-2024 13:46:02 RING SEWER by Kirk Littlejohn M.D.
[2024-09-02 22:28] VITALS: BP 95/71; PULSE 126; RESP 18; TEMP 36.4; O2SAT 100
[2024-09-02 22:45] LABS: Basophils Absolute Auto 0.1 K/mm3 (0.0-0.1); Basophils Percent Auto 0.7 % (0.2-1.2); Eosinophils Absolute Auto 0.7 K/mm3 (0-0.3); Eosinophils Percent Auto 4.5 % (0-4.4); Hematocrit 43.3 % (42.0-52.0); Immature Granulocyte Absolute 0.05 K/mm3 (0.00-0.031); Immature Granulocyte Percent A 0.3 % (0-0.5); Lymphocytes Absolute Auto 3.84 K/mm3 (0.9-3.2); Lymphocytes Percent Auto 24.5 % (18.3-44.2); Mean Corpuscular HGB Conc 34.6 g/dl (32-36); Mean Corpuscular Hemoglobin 31.1 pg (26-34); Mean Corpuscular Volume 89.6 fl (80-100); Mean Platelet Volume 9.2 fl (7.4-10.4); Monocytes Absolute Auto 1.2 K/mm3 (0.1-0.6); Monocytes Percent Auto 7.5 % (2.6-8.5); Neutrophils Absolute Auto 9.8 K/mm3 (1.3-6.7); Neutrophils Percent Auto 62.5 % (45.5-73.1); Platelet Count Result 378 k/mm3 (150-375); Red Blood Count 4.83 M/mm3 (4.6-6.20); Red Cell Distribution Width 14.3 % (11.5-14.5); White Blood Count 15.7 K/mm3 (4.5-10.0)
[2024-09-02 22:58] LABS: Alanine Aminotransferase 17 U/L (6-50); Albumin Level 4.4 g/dL (3.5-5.1); Alkaline Phosphatase 70 U/L (38-126); Anion Gap 7 mmol/L (4-12); Aspartate Amino Transferase 32 U/L (17-59); Blood Urea Nitrogen 8 mg/dL (9-20); Calcium 9.4 mg/dL (8.4-10.2); Carbon Dioxide 28 mmol/L (22-30); Chloride 101 mmol/L (98-107); Estimated CRCL calculation 83 ml/min; Estimated Glomerular Filt Rate > 60; Glucose 121 mg/dL (65-110); Potassium 4.4 mmol/L (3.4-5.0); Sodium 136 mmol/L (137-145)
[2024-09-02 22:59] LABS: Ethanol < 10 mg/dL (<10)
[2024-09-02 23:02] LABS: Barbiturate Screen Urine Negative (Negative); Benzodiazepines Screen Urine Negative (Negative); Cannabinoid Screen Urine Negative (Negative); Cocaine Screen Urine Negative (Negative); Methadone Screen Urine Negative (Negative); Opiate Screen Urine Positive (Negative); Phencyclidine Screen Urine Negative (Negative)
[2024-09-02 23:06] LABS: Add Urine Microscopic? YES; Appearance Urine Clear (Clear); Bacteria Urine None Seen /hpf; Bilirubin Urine Negative (Negative); Blood Urine Negative (Negative); Color Urine Yellow (Yellow); Glucose Urine UA Negative (Negative); Ketones Urine Negative (Negative); Leukocyte Esterase Ur Negative LEU/UL (Negative); Need Manual Microscopic Reviewed; Nitrate Urine Negative (Negative); Non Pathogenic Casts >20; Protein Urine 1+ mg/dL (Negative); RBC Urine 0-2 /hpf (0-2); Specific Grav Ur 1.017 (1.001-1.035); Squamous Epithelial Cell Urine None Seen /hpf (Few); WBC Urine 0-5 /hpf (0-3); pH Urine 5.5 (5.0-9.0)
--- NOTE | 2024-09-02 23:08 | ED.PSYCH ---
HPI - Psych General Chief Complaint: Psychiatric Symptoms Stated Complaint: selina Time Seen by Provider: 09/02/24 22:27 Source: patient Mode of arrival: EMS Limitations: no limitations History of Present Illness HPI Narrative: 29-year-old with a history of schizophrenia, bipolar disorder, heroin abuse presents to the ER with the complaints of having homicidal ideation. Patient states that he was arrested by PD and he started expressing homicidal ideation. However patient upon arrival denies having homicidal or suicidal is presently not taking any medication for his psychiatric disorders. Related Data Allergies Allergy/AdvReac Type Severity Reaction Status Date / Time No Known Allergies Allergy Verified 09/01/23 14:03 Review of Systems Review of Systems: All systems reviewed & are unremarkable except as noted in HPI and below Constitutional: Constitutional: Reports no additional constitutional complaints Eyes: Eyes: Reports no additional eye complaints ENT: Reports system reviewed and no additional complaints, except as documented Cardiovascular: Cardiovascular: Reports no additional cardiovascular complaints Respiratory: Respiratory: Reports no additional respiratory complaints Gastrointestinal: Gastrointestinal: Reports no additional gastrointestinal complaints Musculoskeletal: Musculoskeletal: Reports no additional musculoskeletal complaints Neurologic: Reports system reviewed and no additional complaints, except as documented Psychiatric: Psychiatric: Reports no additional psychiatric complaints and Reports as per HPI Hematologic/Lymphatic: Hematologic/Lymphatic: Reports no additional hematologic/lymphatic complaints PMFSH Past Medical History Medical History (Updated 09/02/24 @ 23:17 by Alexander Lozano MD) History of schizophrenia History of alcohol abuse Surgical History Surgical History (Updated 07/27/23 @ 18:18 by Charisma Saavedra MD) No pertinent past surgical history Social History Social History (Updated 07/27/23 @ 18:18 by Charisma Saavedra MD) Smoking status: Current every day smoker Tobacco type: e-cigarettes/vaping Substance use type: heroin, opiates and methamphetamine Gender identity (if verbalized by the patient): Male Exam Narrative: GENERAL: Well-appearing, well-nourished, and in no acute distress. HEAD: Normocephalic, atraumatic. EYES: PERRLA and EOMI. ENT: Nares clear, no rhinorrhea or epistaxis. Mucous membranes moist. NECK: Supple. CHEST: Clear to auscultation. No respiratory distress. HEART: Regular rate and rhythm. No murmur heard. Normal peripheral pulses. ABDOMEN: Soft, nontender, nondistended, normal active bowel sounds. EXTREMITIES: Normal range of motion. No edema. SKIN: Warm, dry, no rash. NEURO: No focal deficits. Alert and oriented x3. PSYCH: Normal mood and affect. Course Vital Signs Vital signs: Vital Signs Temperature 36.4 C 09/02/24 22:28 Pulse Rate 126 H 09/02/24 22:28 Respiratory Rate 18 09/02/24 22:28 Blood Pressure 95/71 L 09/02/24 22:28 Pulse Oximetry 100 09/02/24 22:28 Oxygen Delivery Room Air 09/02/24 22:28 Temperature 36.4 C 09/02/24 22:28 Pulse Rate 126 H 09/02/24 22:28 Respiratory Rate 18 09/02/24 22:28 Blood Pressure 95/71 L 09/02/24 22:28 Pulse Oximetry 100 09/02/24 22:28 Oxygen Delivery Room Air 09/02/24 22:28 MDM - Psych Differential Diagnosis Differential diagnosis: Likely acute psychosis, bipolar disorder and drug-induced psychotic disorder Medical Records Attestation: I reviewed the patient's medical records. Lab Data Attestation: I reviewed the patient's lab results. 09/02/24 22:36 09/02/24 22:35 Labs: Lab Results 09/02/24 09/02/24 09/02/24 Range/Units 22:34 22:35 22:36 WBC Cancelled 15.7 H RBC Cancelled 4.83 Hgb Cancelled 15.0 Hct Cancelled 43.3 MCV Cancelled 89.6 MCH Cancelled 31.1 MCHC Cancelled 34.6 RDW Cancelled 14.3 Plt Count Cancelled 378 H MPV Cancelled 9.2 Immature Gran % (Auto) Cancelled 0.3 Neut % (Auto) Cancelled 62.5 Lymph % (Auto) Cancelled 24.5 [place] % (Auto) Cancelled 7.5 Eos % (Auto) Cancelled 4.5 H Baso % (Auto) Cancelled 0.7 Lymph # (Auto) Cancelled 3.84 H [place] # (Auto) Cancelled 1.2 H Eos # (Auto) Cancelled 0.7 H Baso # (Auto) Cancelled 0.1 Abs Immat Gran (auto) Cancelled 0.05 H Absolute Neuts (auto) Cancelled 9.8 H Absolute Nucleated RBC Cancelled 0.000 Nucleated RBC % Cancelled 0.0 % Immature Plt Fraction Cancelled Sodium 136 L Cancelled (137-145) mmol/L Potassium 4.4 Cancelled (3.4-5.0) mmol/L Chloride 101 Cancelled (98-107) mmol/L Carbon Dioxide 28 Cancelled (22-30) mmol/L Anion Gap 7 Cancelled (4-12) mmol/L BUN 8 L D Cancelled (9-20) mg/dL Creatinine 1.10 Cancelled (0.7-1.3) mg/dL Estim Creat Clear Calc 83 Cancelled ml/min Estimated GFR > 60 Cancelled (59 - ) Glucose 121 H Cancelled (65-110) mg/dL Calcium 9.4 Cancelled (8.4-10.2) mg/dL Total Bilirubin 1.0 Cancelled (0.2-1.3) mg/dL AST 32 Cancelled (17-59) U/L ALT 17 Cancelled (6-50) U/L Alkaline Phosphatase 70 Cancelled (38-126) U/L Total Protein 7.0 Cancelled (6.3-8.2) g/dL Albumin 4.4 Cancelled (3.5-5.1) g/dL TSH Cancelled TSH (Reflex) Pending Urine Color Yellow (Yellow) Urine Appearance Clear (Clear) Urine pH 5.5 (5.0-9.0) Ur Specific [place] 1.017 (1.001-1.035) Urine Protein 1+ H (Negative) mg/dL Urine Glucose (UA) Negative (Negative) mg/dL Urine Ketones Negative (Negative) mg/dL Ur Blood (Man) Negative (Negative) Urine Nitrate Negative (Negative) Urine Bilirubin Negative (Negative) Urine Urobilinogen 1.0 (<2.0) mg/dL Add Ur Microanalysis Reviewed Leukocyte Esterase Rfl Negative (Negative) TEO/UL Urine RBC 0-2 (0-2) /hpf Urine WBC 0-5 (0-3) /hpf Ur Squamous Epith Cells None seen (Few) /hpf Urine Bacteria None seen /hpf Urine Casts >20 Urine Opiates Screen Cancelled Positive A Urine Methadone Screen Cancelled Negative Ur Barbiturates Screen Cancelled Negative Ur Phencyclidine Scrn Cancelled Negative Ur Amphetamine Screen Cancelled Pending U Benzodiazepines Scrn Cancelled Negative Urine Cocaine Screen Cancelled Negative U Cannabinoids Screen Cancelled Negative Ethyl Alcohol Cancelled < 10 SARS-CoV-2 RNA (RT-PCR) Pending ECG Data EKG #1: ECG completion date: 09/02/24 ECG completion time: 23:15 EKG Interpretation: tachycardia (133), no ectopy, no ST changes, normal QT and no acute changes Discharge Plan Discharge Clinical Impression: Bipolar 1 disorder, Heroin abuse Patient Language: Burmese Prescriptions: No Action furosemide 20 mg tablet 20 mg PO DAILY 10 Days Qty: 10 0RF hydrocodone-acetaminophen 5-325 mg tablet 1 tablet PO Q6H PRN (Reason: pain) Qty: 14 0RF ondansetron 4 mg tablet,disintegrating 4 mg PO Q6H PRN (Reason: nausea and vomiting) Qty: 14 0RF oxycodone-acetaminophen [Percocet] 5-325 mg tablet 1 tablet PO Q6H PRN (Reason: pain) Qty: 14 0RF cephalexin 500 mg capsule 500 mg PO Q8H 7 Days Qty: 21 0RF ketorolac 10 mg tablet 10 mg PO Q6H PRN (Reason: pain) 5 Days Qty: 10 0RF Follow-up/Referrals: PHYSICIAN,CONCRETE BUILDINGS ASSEMBLER [Primary Care Provider] -
[2024-09-02 23:28] LABS: Amphetamine Screen Urine Positive (Negative)
[2024-09-02 23:38] LABS: SARS-CoV-2 RNA PCR Negative (Negative)
--- NOTE | 2024-09-03 02:26 | PC.NURSE ---
Crisis arrived to evaluate pt and reported they felt as if pt was not alert enough for a proper assessment. Pt is a&ox4 but drowsy. Crisis to return after he gets sleep and eats breakfast . Pt has remained calm and cooperative in room.
[2024-09-03 04:58] VITALS: BP 122/74; PULSE 110; RESP 18; O2SAT 95
--- NOTE | 2024-09-03 07:15 | PC.NURSE ---
breakfast tray ordered at this time
--- NOTE | 2024-09-03 10:40 | P.PNED_ITS ---
Subjective Date/time seen: 09/03/24 10:40 Interval history: 29-year-old male presenting to the emergency department for evaluation for homicidal statements after being intoxicated on meth. Patient is no more alert appropriate and denies any tends to hurt himself or hurt other Review of Systems Review of Systems All systems reviewed & are unremarkable except as noted in HPI and below Exam Narrative APPEARANCE: Well appearing, no pain, no distress, well-nourished. HEAD: normocephalic, atraumatic. EYES: PERRLA/EOMI, conjunctivae clear. NOSE: Normal no drainage EARS:TMS clear with good light reflex. THROAT: Pharynx clear, no exudate. NECK: Supple. No adenopathy, no masses. RESPIRATORY: Airway patent, respirations nonlabored. Clear to auscultation bilaterally, no rales, rhonchi, wheezing. CARDIOVASCULAR: Regular rate and rhythm without murmurs rubs or gallops. ABDOMINAL: Soft, nontender, nondistended, normal bowel sounds MUSCULOSKELETAL: Moves all extremities. Strength/ROM intact, No edema, No calf tenderness. NEURO: Alert. Cranial nerves II through XII intact. Good gait. Good coordination SKIN: Warm, dry. Normal Color PSYCHIATRIC: Normal affect/mood. Objective Data Vital Signs Vital Signs: Vital Signs - 24 hr 09/02/24 22:28 09/03/24 04:58 09/03/24 11:11 Temperature 97.6 F 98.1 F Pulse Rate 126 H 110 H 77 Respiratory Rate 18 18 16 Blood Pressure 95/71 L 122/74 123/82 Pulse Oximetry 100 95 97 Oxygen Delivery Room Air Labs Labs: Laboratory Results - last 24 hr 09/02/24 09/02/24 09/02/24 22:34 22:35 22:36 WBC Cancelled 15.7 H RBC Cancelled 4.83 Hgb Cancelled 15.0 Hct Cancelled 43.3 MCV Cancelled 89.6 MCH Cancelled 31.1 MCHC Cancelled 34.6 RDW Cancelled 14.3 Plt Count Cancelled 378 H MPV Cancelled 9.2 Immature Gran % (Auto) Cancelled 0.3 Neut % (Auto) Cancelled 62.5 Lymph % (Auto) Cancelled 24.5 [place] % (Auto) Cancelled 7.5 Eos % (Auto) Cancelled 4.5 H Baso % (Auto) Cancelled 0.7 Lymph # (Auto) Cancelled 3.84 H [place] # (Auto) Cancelled 1.2 H Eos # (Auto) Cancelled 0.7 H Baso # (Auto) Cancelled 0.1 Abs Immat Gran (auto) Cancelled 0.05 H Absolute Neuts (auto) Cancelled 9.8 H Absolute Nucleated RBC Cancelled 0.000 Nucleated RBC % Cancelled 0.0 % Immature Plt Fraction Cancelled Sodium 136 L Cancelled Potassium 4.4 Cancelled Chloride 101 Cancelled Carbon Dioxide 28 Cancelled Anion Gap 7 Cancelled BUN 8 L D Cancelled Creatinine 1.10 Cancelled Estim Creat Clear Calc 83 Cancelled Estimated GFR > 60 Cancelled Glucose 121 H Cancelled Calcium 9.4 Cancelled Total Bilirubin 1.0 Cancelled AST 32 Cancelled ALT 17 Cancelled Alkaline Phosphatase 70 Cancelled Total Protein 7.0 Cancelled Albumin 4.4 Cancelled TSH Cancelled TSH (Reflex) 2.420 Urine Color Yellow Urine Appearance Clear Urine pH 5.5 Ur Specific [place] 1.017 Urine Protein 1+ H Urine Glucose (UA) Negative Urine Ketones Negative Ur Blood (Man) Negative Urine Nitrate Negative Urine Bilirubin Negative Urine Urobilinogen 1.0 Add Ur Microanalysis Reviewed Leukocyte Esterase Rfl Negative Urine RBC 0-2 Urine WBC 0-5 Ur Squamous Epith Cells None seen Urine Bacteria None seen Urine Casts >20 Urine Opiates Screen Cancelled Positive A Urine Methadone Screen Cancelled Negative Ur Barbiturates Screen Cancelled Negative Ur Phencyclidine Scrn Cancelled Negative Ur Amphetamine Screen Cancelled Positive A U Benzodiazepines Scrn Cancelled Negative Urine Cocaine Screen Cancelled Negative U Cannabinoids Screen Cancelled Negative Ethyl Alcohol Cancelled < 10 SARS-CoV-2 RNA (RT-PCR) Negative Progress Note: A&P Assessment and Plan (1) Methamphetamine abuse: Code(s): F15.10 - Other stimulant abuse, uncomplicated Status: Acute Plan Patient was evaluated by the crisis team, patient is more alert and appropriate. Patient denies any homicidal or suicidal ideation. Patient was provided outpatient resources. Patient did sign a safety agreement and patient was comfortable the plan for discharge and close follow-up. Time Spent With Patient Time: Patient was discharged to home
[2024-09-03 11:11] VITALS: BP 123/82; PULSE 77; RESP 16; TEMP 36.7; O2SAT 97
== END 2024-09-03 11:13 | disposition home or self-care (01) ==
PROVIDERS: Emergency Provider Family Medicine
DX: F31.9 Bipolar disorder, unspecified (principal); F11.10 Opioid abuse, uncomplicated; R00.0 Tachycardia, unspecified; Z20.822 Contact with and (suspected) exposure to COVID-19
CPT/HCPCS: 36415; 80053; 80307; 81001; 82077; 84443; 85025; 87635; 93005; 99284

== ENCOUNTER 2024-10-23 19:29 | Emergency (ER) | payer BC, SELFPAY ==
--- OUTSIDE RECORDS SUMMARY | 2024-10-23 19:31 | XMS_ITS | Clinical Summary ---
Author Organization [facility] [employer] Address [address] [place] [address] Care Team Providers Care Seed Pelleter Name Role Phone Given, None Primary Care Provider Unavailabl e Source Comments [facility],non-owned Affiliates and Associated Physician Practices is amultiple site organization consisting of ambulatory clinics and hospital sitesin [place], [place], [place] and [place]. This disclosure is being madepursuant to the Care Everywhere program and may not contain all information available regarding this patient. Last updated 18.[facility] [employer] Allergies Active Allergy Reactions Criticality Noted Date Comments Bee Venom Anaphylaxis High 02/10/2023 Medications * Be aware that medications may not be up to date on this document. Alwaysverify current medications with the patient. Medication Sig Dispensed Refills Start Date End Date Status OLANZapine (ZyPREXA) 15 MG tabletIndications: Schizophrenia Take 1 (one) tablet by mouth at bedtime Reasons: Schizophrenia 30 tablet 04/20/2023 Active Social History Tobacco Use Types Packs/Day Years Used Date Smoking Tobacco: Some Days Cigarettes Smokeless Tobacco: Never Tobacco Cessation:Ready to Q uit: Not Asked; Counseling Given: Not Answered Alcohol Use Standard Drinks/Week Comments Not Currently 0 (1 standard drink = 0.6 oz pur e alcohol) AUDIT-C Answer Date Recorded Q1: How often do you have a drink containing alc ohol? 2-4 times a month 04/20/2023 Q2: How many drinks containi ng alcohol do you have on a typical day when you are drinking? 1 or 2 04/20/2023 Q3: How often do you have si x or more drinks on one occasion? Never 04/20/2023 PHQ-2 Answer Date Recorded PHQ2 TOTAL SCORE 0 02/10/2023 Sex and Gender Information Value Date Recorded Sex Assigned at Male 01/12/2022 9:18 AM CDT Gender Identity Male 01/12/2022 9:18 AM CDT Sexual Orientation Straight 01/12/2022 9: 18 AM CDT Last Filed Vital Signs Vital Sign Reading Time Taken Comments Blood Pressure 170/114 04/20/2023 9:35 AM CDT Pulse 110 04/20/2023 9:35 AM CDT Temperature 36.8 C (98.2 F) 04/20/2023 9:35 AM CDT Respiratory Rate 18 04/20/2023 9:35 AM CDT Oxygen Saturation 99% 02/19/2023 3:18 PM CDT Inhaled Oxygen Concentration - - Weight 80.6 kg (177 lb 9.6 oz) 04/20/2023 9:35 A M CDT Height 180.3 cm (5' 11 ) 04/20/2023 9:35 AM CDT Body Mass Index 24.77 04/20/2023 9:35 AM CDT Plan of Treatment Health Maintenance Due Date Last Done Comments HIV SCREENING 2008 HEPATITIS C SCREENING 07/02/2011 DTAP/TDAP/TD VACCINES (1 - Tdap) 2012 HEPATITIS B VACCINE (1 of 3 - 19+ 3-dose series) 2012 PNEUMOCOCCAL VACCINE (1 of 2 - PCV) 2012 COVID-19 VACCINE ( - 2023-2 5 season) 2024 INFLUENZA VACCINE (#1) 2024 DEPRESSION SCREENING 09/10/2024 02/10/2023 ZOSTER VACCINE (1 of 2) 2043 HIB VACCINE Aged Out No longer eligi ble based on patient's age to complete this topic HPV VACCINE Aged Out No longer eligi ble based on patient's age to complete this topic MENINGOCOCCAL (Group B) VACCINE Aged Out No longer eligible based on patient's age to complete this topic MENINGOCOCCAL VACCINE Aged Out No radha vincent eligible based on patient's age to complete this topic Care Teams Seed Pelleter Relationship Specialty Start Date End Date Given, None PCP - General 02/10/23
--- OUTSIDE RECORDS SUMMARY | 2024-10-23 19:32 | XMS_ITS | Referral Summary ---
Author Organization [facility] Address [address] [place] [address] Care Team Providers Care Yard Coupler Name Role Phone Given, None Primary Care Provider Unavailabl e Source Comments [facility],non-owned Affiliates and Associated Physician Practices is amultiple site organization consisting of ambulatory clinics and hospital sitesin [place], [place], [place] and [place]. This disclosure is being madepursuant to the Care Everywhere program and may not contain all information available regarding this patient. Last updated 18.[facility] [employer] Allergies Active Allergy Reactions Criticality Noted Date [...] 04/20/2023 9:35 AM CDT Plan of Treatment Not on file Care Teams Yard Coupler Relationship Specialty Start Date End Date Given, None PCP - General 02/10/23
--- OUTSIDE RECORDS SUMMARY | 2024-10-23 19:32 | XMS_ITS | Patient Health Summary ---
Author Organization [facility] Address [address] [place] [address] Care Team Providers Care Gas Maker Name Role Phone Given, None Primary Care Provider Unavailabl e Note from [facility],non-owned Affiliates and Associated Physician Practices is amultiple site organization consisting of ambulatory clinics and hospital sitesin [place], [place], [place] and [place]. This disclosure is being madepursuant to the Care Everywhere program and may not contain all information available regarding this patient. Last updated 18.[facility] Allergies * Bee Venom(Anaphylaxis) -High Criticality Medications * Be aware that medications may not be up to date on this document. Alwaysverify current medications with the patient. * OLANZapine (ZyPREXA) 15 MG tablet(Started 04/20/2023) Take 1 (one) tablet by mouth at bedtime Reasons: Schizophrenia Social History Tobacco Use Types Packs/Day Years [...] Mass Index 24.77 04/20/2023 9:35 AM CDT Care Teams Gas Maker Relationship Specialty Start Date End Date Given, None PCP - General 02/10/23
[2024-10-23 19:37] VITALS: BP 159/91; PULSE 107; RESP 17; TEMP 36.6; O2SAT 100
--- NOTE | 2024-10-23 19:41 | ECG_ITS ---
Test Date: 2024-10-23 20:04:59 Measurements Intervals [place] Rate: 112 P: 63 IN: 125 QRS: 64 QRSD: 67 T: -24 QT: 291 QTc: 399 Interpretive Statements SINUS TACHYCARDIA CONSIDER RIGHT VENTRICULAR CONDUCTION DELAY ST-T WAVE ABNORMALITY IN ANTEROLAT/INF LEADS- CONSIDER ISCHEMIA BASELINE ARTIFACT- I, II, AVR, V4-V6 ABNORMAL ECG Compared to ECG 09/02/2024 22:22:46 HEART RATE HAS DECREASED Electronically Signed On 10-24-2024 06:52:31 GEARCASE ASSEMBLER by Heath Berg D.O.
--- NOTE | 2024-10-23 20:02 | ED_ITS ---
HPI - Psych General Chief Complaint: Psychiatric Symptoms Stated Complaint: off meds for 4 days. hearing voices, HI, Time Seen by Provider: 10/23/24 19:53 History of Present Illness HPI Narrative: 29-year-old male with a history of chronic psychiatric illness likely drug induced as he has a history of bipolar depression and methamphetamine abuse. Today presents to the emergency department after he was making homicidal statements according to his sister. Family is not present for collateral formation. Patient is well known to this emergency department has been seen several times for similar events. Patient admitted denies any homicidal or suicidal ideation or any auditory or visual hallucinations. Denies any drug use today. Was otherwise in his normal state of health. Thinks his family is just trying to get rid of him. Denies any other paranoid or persecutory thoughts. Denies any somatic complaints such as chest pain, shortness a breath, nausea, vomiting, headache, vision change, abdominal pain or back pain. Related Data Allergies Allergy/AdvReac Type Severity Reaction Status Date / Time No Known Allergies Allergy Verified 10/23/24 19:46 Review of Systems 2 Review of Systems: As reviewed above in HPI PMFSH Past Medical History Medical History Heroin abuse History of schizophrenia History of alcohol abuse Surgical History Surgical History No pertinent past surgical history Social History Social History Smoking status: Current every day smoker Tobacco type: e-cigarettes/vaping Substance use type: marijuana and methamphetamine Gender identity (if verbalized by the patient): Male Exam 2 Narrative: GENERAL: [Well-appearing, well-nourished, and in no acute distress.] HEAD: [Normocephalic, atraumatic.] EYES: [PERRLA and EOMI.] ENT: Nares clear, no rhinorrhea or epistaxis. Mucous membranes moist. NECK: Supple. CHEST: [Clear to auscultation. No respiratory distress.] HEART: [Regular rate and rhythm]. No murmur heard. [Normal peripheral pulses.] ABDOMEN: [Soft, nondistended], [nontender], [No rigidity or guarding] EXTREMITIES: Normal range of motion. [No edema.] SKIN: Warm, dry, no rash. NEURO: [No focal deficits]. Alert and oriented [x3.] PSYCH: Averts gaze frequently, flat affect, denies any auditory or visual hallucinations according to himself. Denies any suicidal or homicidal ideation. Course Vital Signs Vital signs: Vital Signs Temperature 36.6 C 10/23/24 19:37 Pulse Rate 107 H 10/23/24 19:37 Respiratory Rate 17 10/23/24 19:37 Blood Pressure 159/91 H 10/23/24 19:37 Pulse Oximetry 100 10/23/24 19:37 Oxygen Delivery Room Air 10/23/24 19:37 Temperature 36.6 C 10/23/24 19:37 Pulse Rate 107 H 10/23/24 19:37 Respiratory Rate 17 10/23/24 19:37 Blood Pressure 159/91 H 10/23/24 19:37 Pulse Oximetry 100 10/23/24 19:37 Oxygen Delivery Room Air 10/23/24 19:37 MDM - Psych MDM Narrative Medical decision making narrative: 29-year-old male with history of chronic psychiatric illness and substance abuse with methamphetamine. Patient has been seen several times in this emergency department for drug-induced psychosis and methamphetamine abuse. He is presently denies any substance use today and thinks he is doing well. Family reports that he was making homicidal ideation remarks but patient presently denies homicidal or suicidality. He is not ill appearing but does have a flat affect invert his gaze frequently during examination. Does not appear in any distress. Denies any somatic complaints. Psychiatric workup was ordered including EKG, CBC, CMP, drug screen, urinalysis, COVID test. He will be safe for psychiatric evaluation after medical clearance. Patient has not required any medications for agitation or any psychiatric symptoms here in the ED. Patient is medically cleared. Crisis has evaluated the patient and believe he can be safely discharged home with a safety plan contract. Patient was comfortable with this and he is safe for discharge home at this time. Medical Records Attestation: I reviewed the patient's medical records. Lab Data Attestation: I reviewed the patient's lab results. 10/23/24 20:07 10/23/24 20:07 Labs: Lab Results 10/23/24 10/23/24 10/24/24 Range/Units 20:07 20:08 02:47 WBC 11.7 H (4.5-10.0) K/mm3 RBC 4.70 (4.6-6.20) M/mm3 Hgb 14.8 (14.0-18.0) g/dL Hct 42.8 (42.0-52.0) % MCV 91.1 (80-100) fl MCH 31.5 (26-34) pg MCHC 34.6 (32-36) g/dl RDW 14.2 (11.5-14.5) % Plt Count 361 (150-375) k/mm3 MPV 9.1 (7.4-10.4) fl Immature Gran % (Auto) 0.2 (0-0.5) % Neut % (Auto) 39.6 L (45.5-73.1) % Lymph % (Auto) 43.6 (18.3-44.2) % [place] % (Auto) 10.4 H (2.6-8.5) % Eos % (Auto) 4.7 H (0-4.4) % Baso % (Auto) 1.5 H (0.2-1.2) % Lymph # (Auto) 5.08 H (0.9-3.2) K/mm3 [place] # (Auto) 1.2 H (0.1-0.6) K/mm3 Eos # (Auto) 0.6 H (0-0.3) K/mm3 Baso # (Auto) 0.2 H (0.0-0.1) K/mm3 Abs Immat Gran (auto) 0.02 (0.00-0.031) K/mm3 Absolute Neuts (auto) 4.6 (1.3-6.7) K/mm3 Absolute Nucleated RBC 0.000 (0.0-0.012) K/mm3 Nucleated RBC % 0.0 (0.0-0.2) % Sodium 139 (137-145) mmol/L Potassium 4.0 (3.4-5.0) mmol/L Chloride 104 (98-107) mmol/L Carbon Dioxide 22 (22-30) mmol/L Anion Gap 13 H (4-12) mmol/L BUN 11 (9-20) mg/dL Creatinine 0.98 (0.7-1.3) mg/dL Estim Creat Clear Calc 100 ml/min Estimated GFR > 60 (59 - ) Glucose 73 (65-110) mg/dL Calcium 9.6 (8.4-10.2) mg/dL Total Bilirubin 0.8 (0.2-1.3) mg/dL AST 31 (17-59) U/L ALT 21 (6-50) U/L Alkaline Phosphatase 67 (38-126) U/L Total Protein 7.0 (6.3-8.2) g/dL Albumin 4.3 (3.5-5.1) g/dL TSH (Reflex) 1.500 (0.465-4.68) uIU/mL Urine Opiates Screen Negative (Negative) Urine Methadone Screen Negative (Negative) Ur Barbiturates Screen Negative (Negative) Ur Phencyclidine Scrn Negative (Negative) Ur Amphetamine Screen Pending U Benzodiazepines Scrn Negative (Negative) Urine Cocaine Screen Negative (Negative) U Cannabinoids Screen Negative (Negative) Ethyl Alcohol < 10 (<10) mg/dL Influenza A (RT-PCR) Negative (Negative) Influenza B (RT-PCR) Negative (Negative) RSV (RT-PCR) Negative (Negative) SARS-CoV-2 RNA (RT-PCR) Negative (Negative) Discharge Plan Discharge Clinical Impression: Psychiatric illness, History of homicidal ideation, History of methamphetamine abuse Patient Disposition: Home, Self-Care Condition: Stable Instructions: Antibiotic Form Additional Instructions: Follow-up with regular psychiatrist. Return with any new concerns at any time. Patient Language: Khmer Prescriptions: No Action furosemide 20 mg tablet 20 mg PO DAILY 10 Days Qty: 10 0RF hydrocodone-acetaminophen 5-325 mg tablet 1 tablet PO Q6H PRN (Reason: pain) Qty: 14 0RF ondansetron 4 mg tablet,disintegrating 4 mg PO Q6H PRN (Reason: nausea and vomiting) Qty: 14 0RF oxycodone-acetaminophen [Percocet] 5-325 mg tablet 1 tablet PO Q6H PRN (Reason: pain) Qty: 14 0RF cephalexin 500 mg capsule 500 mg PO Q8H 7 Days Qty: 21 0RF ketorolac 10 mg tablet 10 mg PO Q6H PRN (Reason: pain) 5 Days Qty: 10 0RF Follow-up/Referrals: PHYSICIAN,PRESS OPERATOR [Primary Care Provider] - Time of Disposition: 03:20
[2024-10-23 20:13] LABS: Basophils Absolute Auto 0.2 K/mm3 (0.0-0.1); Basophils Percent Auto 1.5 % (0.2-1.2); Eosinophils Absolute Auto 0.6 K/mm3 (0-0.3); Eosinophils Percent Auto 4.7 % (0-4.4); Hematocrit 42.8 % (42.0-52.0); Hemoglobin 14.8 g/dL (14.0-18.0); Immature Granulocyte Absolute 0.02 K/mm3 (0.00-0.031); Immature Granulocyte Percent A 0.2 % (0-0.5); Lymphocytes Absolute Auto 5.08 K/mm3 (0.9-3.2); Lymphocytes Percent Auto 43.6 % (18.3-44.2); Mean Corpuscular HGB Conc 34.6 g/dl (32-36); Mean Corpuscular Hemoglobin 31.5 pg (26-34); Mean Corpuscular Volume 91.1 fl (80-100); Mean Platelet Volume 9.1 fl (7.4-10.4); Monocytes Absolute Auto 1.2 K/mm3 (0.1-0.6); Monocytes Percent Auto 10.4 % (2.6-8.5); Neutrophils Absolute Auto 4.6 K/mm3 (1.3-6.7); Neutrophils Percent Auto 39.6 % (45.5-73.1); Platelet Count Result 361 k/mm3 (150-375); Red Cell Distribution Width 14.2 % (11.5-14.5); White Blood Count 11.7 K/mm3 (4.5-10.0)
[2024-10-23 20:27] LABS: Ethanol < 10 mg/dL (<10)
--- OUTSIDE RECORDS SUMMARY | 2024-10-23 20:30 | XMS_ITS | Referral Summary ---
Author Organization [facility] Address [address] [place] [address] Care Team Providers Care Needle Board Repairer Name Role Phone Given, None Primary Care Provider Unavailabl e Source Comments [facility],non-owned Affiliates and Associated Physician Practices is amultiple site organization consisting of ambulatory clinics and hospital sitesin [place], [place], [place] and [place]. This disclosure is being madepursuant to the Care Everywhere program and may not contain all information available regarding this patient. Last updated 18.[facility] Allergies Active Allergy Reactions Criticality Noted Date [...] of Treatment Not on file Care Teams Needle Board Repairer Relationship Specialty Start Date End Date Given, None PCP - General 02/10/23
--- OUTSIDE RECORDS SUMMARY | 2024-10-23 20:30 | XMS_ITS | Patient Health Summary ---
Author Organization [facility] Address [address] [place] [address] Care Team Providers Care Traffic Workforce Representative Name Role Phone Given, None Primary Care Provider Unavailabl e Note from [facility],non-owned Affiliates and Associated Physician Practices is amultiple site organization consisting of ambulatory clinics and hospital sitesin [place], [place], [place] and [place]. This disclosure is being madepursuant to the Care Everywhere program and may not contain all information available regarding this patient. Last updated 18.[facility] Allergies * Bee Venom(Anaphylaxis) -High Criticality Medications [...] 24.77 04/20/2023 9:35 AM CDT Care Teams Traffic Workforce Representative Relationship Specialty Start Date End Date Given, None PCP - General 02/10/23
--- OUTSIDE RECORDS SUMMARY | 2024-10-23 20:30 | XMS_ITS | Clinical Summary ---
Author Organization [facility] [email or web address] Address [address] [place] [address] Care Team Providers Care Manager [place] Name Role Phone Given, None Primary Care Provider Unavailabl e Source Comments [facility],non-owned Affiliates and Associated Physician Practices is amultiple site organization consisting of ambulatory clinics and hospital sitesin [place], [place], [place] and [place]. This disclosure is being madepursuant to the Care Everywhere program and may not contain all information available regarding this patient. Last updated 18.[facility] [email or web address] Allergies Active Allergy Reactions Criticality Noted Date [...] age to complete this topic Care Teams Manager [place] Relationship Specialty Start Date End Date Given, None PCP - General 02/10/23
[2024-10-23 20:35] LABS: Alanine Aminotransferase 21 U/L (6-50); Albumin Level 4.3 g/dL (3.5-5.1); Alkaline Phosphatase 67 U/L (38-126); Anion Gap 13 mmol/L (4-12); Aspartate Amino Transferase 31 U/L (17-59); Bilirubin,Total 0.8 mg/dL (0.2-1.3); Blood Urea Nitrogen 11 mg/dL (9-20); Calcium 9.6 mg/dL (8.4-10.2); Carbon Dioxide 22 mmol/L (22-30); Chloride 104 mmol/L (98-107); Estimated CRCL calculation 100 ml/min; Estimated Glomerular Filt Rate > 60; Glucose 73 mg/dL (65-110); Sodium 139 mmol/L (137-145)
[2024-10-23 20:49] LABS: Influenza A QL RT-PCR Negative (Negative); Influenza B QL RT-PCR Negative (Negative); RSV RNA, RT-PCR Negative (Negative); SARS-CoV-2 RNA PCR Negative (Negative)
--- NOTE | 2024-10-23 21:54 | PC.NURSE ---
THIS RN ASKED PT IF HE WOULD BE ABLE TO PROVIDE URINE SAMPLE. PT REPORTS HE IS UNABLE TO URINATE AT THIS TIME AND LEGALLY DOES NOT HAVE TO PROVIDE A SAMPLE. PT EDUCATED ON PSYCH EVAL PROCESS AND HOW NOT PROVIDING A SAMPLE COULD PROLONG PROCESS. PT STATES HE IS OK WITH WAITING AND WILL WALK OUT THE DOOR IF HE GETS TIRED OF BEING HERE. ER CHARGE, ANNY MADE AWARE AND EDP DR DURANT. NO FURTHER ORDERS.
--- NOTE | 2024-10-23 21:58 | PC.NURSE ---
Pt keeps stating he does not have to urinate /refusing to try at this time. Pt asked multiple times since arriving to room.
--- NOTE | 2024-10-23 23:10 | PC.NURSE ---
Pt's sister Lior called for an update and stated, I am calling to see if I should go to sleep or if I should come and pick him up . This RN recommended that she get some sleep and that she will be contacted if needed. Lior verbalized understanding and had no further questions or concerns at this time.
[2024-10-24 03:13] LABS: Barbiturate Screen Urine Negative (Negative); Benzodiazepines Screen Urine Negative (Negative)
[2024-10-24 03:15] LABS: Cannabinoid Screen Urine Negative (Negative); Cocaine Screen Urine Negative (Negative); Methadone Screen Urine Negative (Negative); Opiate Screen Urine Negative (Negative); Phencyclidine Screen Urine Negative (Negative)
[2024-10-24 03:25] LABS: Add Urine Microscopic? YES; Appearance Urine Clear (Clear); Bacteria Urine None Seen /hpf; Bilirubin Urine Negative (Negative); Blood Urine Negative (Negative); Color Urine Yellow (Yellow); Glucose Urine UA Negative (Negative); Ketones Urine Negative (Negative); Leukocyte Esterase Ur Negative LEU/UL (Negative); Need Manual Microscopic Reviewed; Nitrate Urine Negative (Negative); Non Pathogenic Casts 0-2; Protein Urine Trace mg/dL (Negative); RBC Urine 0-2 /hpf (0-2); Specific Grav Ur 1.015 (1.001-1.035); Squamous Epithelial Cell Urine None Seen /hpf (Few); WBC Urine 0-5 /hpf (0-3)
[2024-10-24 03:26] LABS: Spermatozoa Urine PRESENT
[2024-10-24 03:34] LABS: Amphetamine Screen Urine Positive (Negative)
== END 2024-10-24 03:59 | disposition home or self-care (01) ==
PROVIDERS: Emergency Provider Student in an Organized Health Care Education/Training Program
DX: F99 Mental disorder, not otherwise specified (principal); F15.10 Other stimulant abuse, uncomplicated; R45.850 Homicidal ideations; Z11.52 Encounter for screening for COVID-19; F20.9 Schizophrenia, unspecified; F17.290 Nicotine dependence, other tobacco product, uncomplicated; Z79.899 Other long term (current) drug therapy; R00.0 Tachycardia, unspecified; R94.31 Abnormal electrocardiogram [ECG] [EKG]
CPT/HCPCS: 36415; 80053; 80307; 81001; 82077; 84443; 85025; 87637; 93005; 99284